=== PATIENT | female | born 1990 | race Caucasian/White ===

== ENCOUNTER 2021-10-19 18:31 | Emergency (ER) | payer MEDICAID ==
[~2021-10-19] VITALS: Ht 162.6 cm; Wt 59.0 kg
[2021-10-19 18:38] VITALS: BP 119/79
[2021-10-19] MEDS ORDERED: VISTARIL50 MG PO (18:42)
[2021-10-19] MEDS ORDERED: PROZAC20 MG PO (18:42)
--- NOTE | 2021-10-20 14:49 | EKG ---
[place] [address] ELECTROCARDIOGRAM REPORT Name: BELEN NORRISMARY BURTON Room: [facility]#: [id number] Admission: 10/19/21 Attend Phys: Discharge: Date of : 86 Date of Service: 10/19/21 1837 Report #: [id number] THIS REPORT FOR: //name// [facility] ED Test Date: 2021-10-19 Test Time: 18:37:40 Pat Name: MARY NORRIS Department: Room: Gender: F Search Marketing Specialist: Reji : 1990 Requested By: Daiana Del Toro Order Number: [id number] MD: Javon Bustamante Measurements Intervals [place] Rate: 110 P: 71 MS: 128 QRS: 92 QRSD: 86 T: -19 QT: 395 QTc: 535 Interpretive Statements Sinus tachycardia Consider right atrial enlargement Borderline right axis deviation Borderline repolarization abnormality Prolonged QT interval No previous ECG available for comparison Electronically Signed On 10-20-2021 14:49:19 [employer] ARCHITECT by Javon Bustamante [email or web address] <ELECTRONICALLY SIGNED> By: Javon Bustamante MD, [facility] 10/20/21 1449 1837 1837 Javon Bustamante MD, [facility] /EPI
== END 2021-10-19 23:02 | disposition left against medical advice (07) ==
LOC: M.ERS 18:31
DX: R07.89 Other chest pain (principal); Z53.21 Procedure and treatment not carried out due to patient leaving prior to being seen by health care provider; Z98.51 Tubal ligation status; Z88.2 Allergy status to sulfonamides; Z88.6 Allergy status to analgesic agent; Z88.8 Allergy status to other drugs, medicaments and biological substances